=== PATIENT | female | born 1980 | race Caucasian/White ===

== ENCOUNTER 2018-06-05 06:10 | Day surgery (SDC) | payer OTHER ==
--- NOTE | 2018-06-04 13:10 | PREOPHP ---
DATE OF ADMISSION: 06/05/2018 HISTORY OF PRESENT ILLNESS: Ms. Judi Conway is a 37-year-old 2, para 2, desires permanent surgical sterilization. PAST MEDICAL HISTORY: Eczema. MEDICATIONS: Oral contraception pills. PAST SURGICAL HISTORY: Appendectomy. OBSTETRICAL HISTORY: x2 vaginal delivery. GYNECOLOGIC HISTORY: 13, regular, with 2 to 3 days. Sexually active with 1 partner. Denies any sex ually transmitted infections. SOCIAL HISTORY: Denies any smoking, drugs or alcohol. FAMILY HISTORY: None. REVIEW OF SYSTEMS: All within normal except history of present illness. PHYSICAL EXAMINATION: HEENT: Within normal. LUNGS: CTA bilateral. CARDIOVASCULAR: S1, S2, regular rhythm. ABDOMEN: Soft, nontender, negative distention. EXTREMITIES: Negative edema. No calf tenderness. VAGINAL: Normal external genitalia. Cervix negative CMT, negative lesions. Adnexa negative mass, n ontender bilateral. Fundus within normal limits. ASSESSMENT: Multiparity, desires permanent surgical sterilization. PLAN: Consent for a laparoscopic bilateral tubal sterilization. Risks, benefits and alternatives ex plained. All questions were answered. Dictated By: OMER FLORES/NANCY Conf#: [id number] DID#: [id number]
[~2018-06-05] VITALS: Ht 157.5 cm; Wt 50.6 kg
[2018-06-05] VITALS (12 sets, daily range): BP systolic 98–118; BP diastolic 50–70; PULSE 70–88; RESP 12–20; Ht 157.5 cm; Wt 50.6 kg
[2018-06-05] MEDS ORDERED: DESFLURANE 15 MIN ONE (07:00)
[2018-06-05] MEDS ORDERED: DEXAMETHASONE 4 MG/ML 5 ML INJ ONE (07:00)
[2018-06-05] MEDS ORDERED: PHENYLephrine (100 MCG/ML) 5ML SYG ONE (07:00)
--- NOTE | 2018-06-05 07:08 | PREAC ---
Date/Time of Note Date/Time of Note DATE: 06/05/18 TIME: 07:07 Anesthesia Eval and Record Evaluation Time Pre-Procedure Interview DATE: 06/05/18 TIME: 07:07 Age 37 Sex female NPO: 8 hrs Preoperative diagnosis elective sterilization Planned procedure bilateral tubal sterilization Past Medical History Past Medical History: Includes (eczema) Surgery & Anesthesia Issues No known issue (appe) Meds Anticoagulation: No Beta Asia within 24 hr: No Reason Beta Asia not given: Pt. not on B-Asia Meds reviewed: Yes Allergies Coded Allergies: No Known Allergy (Unverified , 05/31/18) Allergies Reviewed: Yes Labs/Studies Labs Reviewed: Reviewed by anesthesiologist test: Negative Pre-procedure Exam Airway: Adequate mouth opening, Adequate thyromental dist Mallampati: Mallampati II Teeth: Normal Lung: Normal Heart: Normal ASA Physical Status ASA physical status: 1 Emergency: None Planned Anesthetic General/MAC: ETT Pre-operative Attestations Prior to commencing anesthesia and surgery, the patient was re-evaluated, there was verification of: *The patient's identity *The results of appropriate recent lab work and preoperative vital signs *The above evaluation not changing prior to induction *Anesthetic plan, risk benefits, alternative and complications discussed with patient/family; questions answered; patient/family understands, accepts and wishes to proceed. GLADYS GUO Jun 05, 2018 07:08
[2018-06-05] MEDS ORDERED: LIDOCAINE 2% (SDV) 5 ML INJ ONE (07:21)
[2018-06-05] MEDS ORDERED: CEFAZOLIN 1 GM INJ ONE (07:21)
[2018-06-05] MEDS ORDERED: MIDAZOLAM 1 MG/ML 2 ML INJ ONE (07:21)
[2018-06-05] MEDS ORDERED: FENTAnyl 50 MCG/ML VIAL ONE (07:21)
[2018-06-05] MEDS ORDERED: ROCURONIUM 50 MG INJ ONE (07:21)
[2018-06-05] MEDS ORDERED: FAMOTIDINE 20 MG INJ ONE (07:21)
[2018-06-05] MEDS ORDERED: PROPOFOL 40 ML ONE (07:21)
[2018-06-05] MEDS ORDERED: ONDANSETRON 4 MG INJ ONE (07:21)
[2018-06-05] MEDS ORDERED: FENTAnyl 50 MCG/ML VIAL IV PRN ×2 (07:30)
[2018-06-05] MEDS ORDERED: morphine (1 MG/ML) 10ML SYRINGE IV PRN ×2 (07:30)
[2018-06-05] MEDS ORDERED: MEPERIDINE 25 MG INJ IV PRN (07:30)
[2018-06-05] MEDS ORDERED: LABETALOL HCL 20MG INJ IV PRN (07:30)
[2018-06-05] MEDS ORDERED: OXYCODONE/ACETAMINOPHEN (5/325) TAB PO PRN ×2 (07:30)
[2018-06-05] MEDS ORDERED: ONDANSETRON 4 MG INJ IV PRN (07:30)
[2018-06-05] MEDS ORDERED: HYDROmorphONE 1 MG/5 ML IV SYRINGE IV PRN ×2 (07:30)
[2018-06-05] MEDS ORDERED: DIPHENHYDRAMINE 50 MG INJ IV PRN (07:30)
[2018-06-05] MEDS ORDERED: ALBUTEROL 0.083% (NEB) 2.5 MG/3 ML AMP HHN PRN (07:30)
[2018-06-05] MEDS ORDERED: SUGAMMADEX SODIUM 200 MG/2 ML VIAL IV ONE (08:07)
[2018-06-05] MEDS ORDERED: BUPIVACAINE 0.5%/EPI (SDV) 30 ML INJ INJ ONE (08:09)
[2018-06-05] MEDS ORDERED: BUPIVACAINE 0.5%/EPI (SDV) 30 ML INJ ONE (08:11)
--- NOTE | 2018-06-05 08:29 | PAC ---
Date/Time of Note Date/Time of Note DATE: 06/05/18 TIME: 08:27 Post-Anesthesia Notes Post-Anesthesia Note Last documented vital signs Vital Signs Date Temp Pulse Resp B/P (MAP) Pulse Ox O2 O2 Flow FiO2 Time Delivery Rate 06/05/18 99.2 92 18 111/50 98 face mask 8L 0822 (79) Activity: WNL Respiratory function: WNL Cardiovascular function: WNL Mental status: Baseline Pain reasonably controlled: Yes Hydration appropriate: Yes Nausea/Vomiting absent: Yes GLADYS GUO Jun 05, 2018 08:29
--- NOTE | 2018-06-05 09:14 | PD.PPDC ---
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
--- NOTE | 2018-06-05 09:14 | OPPN ---
Date/Time of Note Date/Time of Note DATE: 06/05/18 TIME: 09:12 Operative Report Planned Procedure Procedure date Jun 05, 2018 Procedure(s) multiparity desires permanent surgical sterilization Performed by see signature line Laboratory Aide: OMER NOBLE MD 2nd Laboratory Aide none Pre-procedure diagnosis laparoscopic bilateral tubal fulguration Vwzuf7Lz Anesthesia Type: Vzhxk8z general Post-Procedure Post-procedure diagnosis same Findings normal uterus tubes and ovaries Estimated Blood Loss: minimal Specimen(s) none Grafts/Implant(s) none Complication(s) none OMER NOBLE MD Jun 05, 2018 09:14
[2018-06-05] MEDS ORDERED: FLUO15CR (09:50)
[2018-06-05] MEDS ORDERED: CETI10TA19 (09:50)
[2018-06-05] MEDS ORDERED: [UNRECOGNIZED DRUG - CODE] (09:50)
--- NOTE | 2018-06-05 10:11 | OPR ---
DATE OF OPERATION: 06/05/2018 PREOPERATIVE DIAGNOSIS: Multiparity, desires permanent surgical sterilization. POSTOPERATIVE DIAGNOSIS: Multiparity, desires permanent surgical sterilization. OPERATION PERFORMED: Laparoscopic bilateral tubal fulguration. SURGEON: Omer Salcedo MD MEDICAL INSURANCE VERIFIER: None. ANESTHESIA: General. COMPLICATIONS: None. ESTIMATED BLOOD LOSS: Minimal. FINDINGS: Normal uterus, tubes and ovaries. DESCRIPTION OF PROCEDURE: After explaining the risks, benefits and alternatives, the patient consent signed in chart, the patient was taken to the operating room where her general anesthesia was obtain ed without difficulty. The patient was then examined under anesthesia and found to have a small ante rior uterus with normal adnexa. She was then placed in a dorsal lithotomy position, prepared and lillie ped in normal sterile fashion. A heavy weighted speculum was then placed in the patient's vagina and the anterior lip of the cervix was grasped with a single tooth tenaculum. A HUMI uterine manipulato r was then advanced into the uterus to provide means to manipulate the uterus. The speculum was then removed from the vagina. Attention was then turned to the patient's abdomen where a 5 mm skin incis ion was made in the umbilical fold. The Veress needle was carefully introduced into the peritoneal c avity at 45 degree angle while tenting the abdominal wall. Intraperitoneal placement was confirmed b y use of water-filled syringe and a drop in intraabdominal pressure with insufflation of CO2 gas. Th e trocar and sleeve were then advanced without difficulty into the abdomen where intra-abdominal plac ement was confirmed by laparoscope. Pneumoperitoneum was obtained with 4 liters of CO2 gas. A 5 mm trocar and sleeve were then advanced without difficulty into the abdomen where intra-abdominal placem ent was confirmed by laparoscope. A second skin incision was made 2 cm above the symphysis pubis in the midline. This second trocar and sleeve were then advanced under direct visualization. A survey of the patient's pelvis and abdomen revealed entirely normal. At this point, the right fallopian tub e was fulgurated at multiple areas of the isthmus and ampullary regions with good blanching. Similar ly, the left fallopian tube was fulgurated. There was no bleeding from the mesosalpinx. The instrum ents were then removed from the patient's abdomen and the incision was repaired with 3-0 Vicryl. The HUMI was then removed from the vagina with no bleeding noted from the cervix. The patient tolerated procedure well. All counts were correct. The patient was taken to recovery room in stable conditio n. Dictated By: OMER FLORES/NANCY Conf#: [id number] DID#: [id number]
== END 2018-06-05 15:58 | disposition home or self-care (01) ==
LOC: SDS 06:10
PROVIDERS: ATTEND Obstetrics & Gynecology
DX: Z30.2 Encounter for sterilization (principal)
CPT/HCPCS: 58670; 86900; 86901; J0690; J2250; J2405; J3010; Z7512; Z7610; J1100; J2370